=== PATIENT | male | born 2005 | race Caucasian/White ===

== ENCOUNTER 2025-01-05 16:10 | Outpatient (CLI) | payer OTHER, SELFPAY ==
[2025-01-06 01:54] LABS: Chlamydia DNA Amplified* DETECTED (No Detected); GC DNA Amplified* NOT DETECTED (No Detected)
== END 2025-01-05 16:11 | disposition home or self-care (01) ==
LOC: LKVREF 16:11
PROVIDERS: Visit Provider Nurse Practitioner Family
DX: Z20.2 Contact with and (suspected) exposure to infections with a predominantly sexual mode of transmission (principal); Z11.3 Encounter for screening for infections with a predominantly sexual mode of transmission
CPT/HCPCS: 87491; 87591